=== PATIENT | female | born 1970 | race Caucasian/White ===

== ENCOUNTER 2017-04-29 06:30 | Day surgery (SDC) | payer OTHER ==
[2017-04-29] MEDS ORDERED: Lactated Ringers 1,000 ML IV SCH (07:30)
[2017-04-29] MEDS ORDERED: Propofol 200 MG/20 ML SDV ONE (08:00)
[2017-04-29] MEDS ORDERED: fentaNYL 100 MCG/2 ML SDV ONE (08:00)
[2017-04-29] MEDS ORDERED: Midazolam 1 MG/ML 2 ML SDV ONE (08:00)
[2017-04-29 09:57] VITALS: BP 110/73
--- NOTE | 2017-04-29 12:41 | OR ---
DATE OF PROCEDURE: 04/29/2017 PREOPERATIVE DIAGNOSES: Gastroesophageal reflux disease, use of an H2 latasha and PPI, epigastric pain. POSTOPERATIVE DIAGNOSES: Gastroesophageal reflux disease, use of an H2 latasha and PPI, epigastric pain. PROCEDURE: Esophagogastroduodenoscopy with antral biopsies for CLOtest and sent for pathology to look for Helicobacter pylori; biopsy of gastroesophageal junction. SURGEON: Graham Funes MD. ANESTHESIA: IV anesthesia with monitored anesthesia care. INDICATIONS: This 46-year-old white female is referred for upper endoscopy because of gastroesophageal reflux disease, epigastric pain, and she uses an H2 latasha, as well as a proton pump inhibitor. I counseled her for upper endoscopy with possible biopsy and she gave her informed consent to proceed. DESCRIPTION OF PROCEDURE: The patient was placed in the left lateral decubitus position. IV anesthesia was administered by the Anesthesia Service. Time-out was held. The flexible video Olympus upper endoscope was passed through her mouth, down her esophagus, and into her stomach. The scope was easily passed through the pylorus into the duodenal reaching its third portion. The scope was then slowly withdrawn, examining the mucosa throughout. The duodenal mucosa appeared unremarkable. The scope was brought up through the pylorus. The antrum appeared unremarkable. We did obtain antral biopsies for CLOtest and sent specimen for pathology to look for Helicobacter pylori because she is on both an H2 latasha and a proton pump inhibitor, which could mask Helicobacter pylori infection. The scope was retroflexed. The proximal stomach appeared unremarkable. The scope was straightened and brought up to the GE junction. There was scarring at the GE junction consistent with gastroesophageal reflux disease. We obtained multiple totalling six biopsies of the gastroesophageal junction. The scope was then brought proximally up through the remainder of the esophagus, which otherwise appeared unremarkable, and it was removed. She tolerated the procedure well. Graham Funes MD /[id number] JAMAL
== END 2017-04-29 09:50 | disposition home or self-care (01) ==
LOC: JP.SDS 06:30
PROVIDERS: ATTEND Surgery
DX: K29.50 Unspecified chronic gastritis without bleeding (principal); Z88.1 Allergy status to other antibiotic agents
CPT/HCPCS: 43239; 87081; 88305; 88312; J2250; J2704; J3010; J7120

== ENCOUNTER 2024-07-04 04:00 | Emergency (ER) | payer OTHER ==
[2024-07-04 04:14] VITALS: BP 143/109; PULSE 100
[2024-07-04] MEDS: diphenhydrAMINE 25 MG Cap PO ONE (04:53)
[2024-07-04 04:58] LABS: BASOPHILS PERCENT AUTO 0.3 % (0.1-1.3); EOSINOPHILS ABSOLUTE AUTO 0.42 K/uL (0.00-0.40); EOSINOPHILS PERCENT AUTO 5.4 % (0.0-5.4); HEMATOCRIT 42.5 % (34.3-46.0); HEMOGLOBIN 14.3 g/dL (11.2-15.5); IMMATURE GRAN ABSOLUTE AUTO 0.04 K/uL (0.00-0.23); IMMATURE GRAN PERCENT AUTO 0.5 % (0.0-0.7); LYMPHOCYTES ABSOLUTE AUTO 0.92 K/uL (0.8-3.3); LYMPHOCYTES PERCENT AUTO 11.9 % (11.4-47.7); MEAN CORPUSCULAR HEMOGLOBIN 31.2 pg (31.6-35.5); MEAN CORPUSCULAR HGB CONC 33.6 g/dL (31.6-35.5); MEAN CORPUSCULAR VOLUME 92.6 fL (81.4-99.0); MONOCYTES ABSOLUTE AUTO 0.76 K/uL (0.20-0.90); MONOCYTES PERCENT AUTO 9.8 % (3.3-12.6); NEUTROPHILS ABSOLUTE AUTO 5.56 K/uL (1.0-7.6); NEUTROPHILS PERCENT AUTO 72.1 % (40.0-78.1); PLATELET COUNT,PLT 233 K/uL (130-375); RED BLOOD CELL COUNT 4.59 M/uL (3.77-5.24); WHITE BLOOD CELL COUNT,WBC 7.7 K/uL (3.2-11.0)
[2024-07-04 05:02] LABS: BASOPHILS ABSOLUTE AUTO 0.02 K/uL (0.00-0.10)
[2024-07-04 05:17] LABS: ALANINE AMINOTRANSFERASE,ALT 48 U/L (12-78); ALBUMIN 3.9 g/dL (3.4-5.0); ALKALINE PHOSPHATASE 103 U/L (46-116); ASPARTATE AMNIOTRANSFERASE,AST 27 U/L (15-37); BILIRUBIN TOTAL 0.3 mg/dL (0.2-1.0); BLOOD UREA NITROGEN,BUN 17 mg/dL (7-18); C-REACTIVE PROTEIN 2.44 mg/dL (<0.50); CALCIUM 9.5 mg/dL (8.5-10.1); CARBON DIOXIDE,CO2 25 mmol/L (21-32); CHLORIDE,CL 103 mmol/L (100-108); CREATININE 1.1 mg/dL (0.6-1.0); EST CRCL DRUG DOSING (CG) 50.49 mL/min; ESTIMATED GFR 60 mL/min (>60); GLUCOSE RANDOM 105 mg/dL (74-106); POTASSIUM,K 4.1 mmol/L (3.6-5.2); PROTEIN TOTAL,TP 7.8 g/dL (6.4-8.2); SODIUM,NA 139 mmol/L (140-148)
[2024-07-04 05:26] LABS: ANION GAP 15.1 mmol/L (5.0-14.0)
[2024-07-04 05:38] LABS: LYME AB IgG Negative (Negative)
[2024-07-04 05:39] LABS: LYME AB IgM Negative (Negative)
== END 2024-07-04 05:00 | disposition home or self-care (01) ==
LOC: JP.ED 04:00
DX: R21 Rash and other nonspecific skin eruption (principal); E66.9 Obesity, unspecified; Z90.49 Acquired absence of other specified parts of digestive tract; Z79.2 Long term (current) use of antibiotics; Z88.1 Allergy status to other antibiotic agents; Z68.33 Body mass index [BMI] 33.0-33.9, adult
CPT/HCPCS: 36415; 80053; 83605; 85025; 86140; 86618; 87468; 87484; 87798; 99283; A9270